=== PATIENT | male | born 1930 | race Caucasian/White ===

== ENCOUNTER → 2017-08-26 | Outpatient (CLI) | payer OTHER, MEDICARE | LOC: BHFA 14:45 | PROVIDERS: ATTEND Internal Medicine | DX: R00.2 Palpitations (principal); I48.91 Unspecified atrial fibrillation; I34.0 Nonrheumatic mitral (valve) insufficiency ==

== ENCOUNTER 2018-02-25 08:50 | Emergency (ER) | payer OTHER, MEDICARE ==
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
[2018-02-25 10:51] VITALS: BP 163/78
== END 2018-02-25 10:58 | disposition home or self-care (01) ==
LOC: EDUNIT#
DX: S51.012A Laceration without foreign body of left elbow, initial encounter (principal); S00.412A Abrasion of left ear, initial encounter; V49.49XA Driver injured in collision with other motor vehicles in traffic accident, initial encounter; Y92.410 Unspecified street and highway as the place of occurrence of the external cause